=== PATIENT | female | born 1995 | race Caucasian/White ===

== ENCOUNTER 2020-07-13 07:51 | Emergency (ER) | payer BC, SELFPAY ==
[2020-07-13 07:59] VITALS: BP 134/73; PULSE 102; RESP 20; TEMP 37.3; O2SAT 100; BMI 36.6
--- NOTE | 2020-07-13 08:22 | ED.SKABFB ---
HPI - Skin/Abscess/Foreign Bdy General Chief complaint: Skin/Abscess/Foreign Body Stated complaint: swelling lymph nodes, worsening Time Seen by Provider: 07/13/20 08:02 Source: patient Mode of arrival: Family Vehicle Limitations: no limitations History of Present Illness HPI narrative: Patient is an otherwise healthy 25-year-old female was here for evaluation of a lymph node in her right armpit and also 1 in her left groin. She was sent over from the walk-in clinic this morning without seeing the provider there because of a ?need of a workup ?. She was seen recently at the walk-in clinic for the lymph node in her right armpit. She states since that visit it has decreased in size and become somewhat less tender however she has developed a new area in her left groin that is also causing her discomfort. She also states she has tingling down her right arm in her left leg. She is scheduled for an ultrasound of the lymph node in her right armpit tomorrow. She also has a primary care doctor appointment scheduled for next week. She has had some chills but no fevers. She has had cysts in the past in her armpit that have needed to be removed. She was also concerned about breast cancer is she has a couple aunts and a great aunt who have had breast cancer. No cancers in the either her grandmother's or mother or sisters. Related Data Home Medications Medication Instructions Recorded Confirmed No Known Home Medications 07/10/20 07/13/20 Allergies Allergy/AdvReac Type Severity Reaction Status Date / Time No Known Drug Allergies Allergy Verified 07/13/20 08:03 Review of Systems Constitutional Constitutional: Reports chills and Denies fever(s) Cardiovascular Cardiovascular: Denies chest pain and Denies dyspnea Respiratory Respiratory: Denies dyspnea Gastrointestinal Gastrointestinal: Denies abdominal pain Musculoskeletal Musculoskeletal: Reports tingling Integumentary/Breasts Comments: Enlarged lymph nodes Neurologic Neurologic: Reports tingling Hematologic/Lymphatic On Anticoagulants: No Allergic/Immunologic Allergic/Immunologic: Denies urticaria Patient History Medical History Pain in right axilla Social History Smoking Status: Current every day smoker Smoking Status: Current every day smoker tobacco type: cigarettes alcohol intake frequency: 0-2 drinks per day Substance Use Type: marijuana Exam Initial Vital Signs Initial Vital Signs: Vital Signs Temperature 99.1 F 07/13/20 07:59 Pulse Rate 102 H 07/13/20 07:59 Respiratory Rate 20 07/13/20 07:59 Blood Pressure 134/73 07/13/20 07:59 Pulse Oximetry 100 07/13/20 07:59 Const General: cooperative and comfortable Limitations: mental status not altered HENMT Head: normal to inspection and normocephalic Resp Effort & Inspection: normal respiratory effort Cardio Rate: regular rate Skin Lesions: no lesions Rashes: no rashes Extrem Other: Patient has a 2 cm x 1 cm tender well-circumscribed soft lymph node in the right axilla without any overlying skin changes. She also has a 0.5 cm x 0.5 cm freely movable soft tender lymph node in the left inguinal region without any overlying skin changes. Psych Appearance: grossly normal and well kempt Course Vital Signs Vital signs: Vital Signs - 8 hr 07/13/20 07:59 Temperature 99.1 F Pulse Rate 102 H Respiratory Rate 20 Blood Pressure 134/73 Pulse Oximetry 100 MDM - Skin/Abscess/Foreign Bdy MDM Narrative Medical decision making narrative: Her physical exam today is consistent with a right axillary lymph node and also a left inguinal lymph node without any overlying skin changes concerning for cellulitis. I have low suspicion for abscesses given the presentation. I also have low suspicion for cyst given her presentation today as well. She is afebrile. She is slightly tachycardic however she states this is not unusual for her. She is not toxic-appearing. No indication for antibiotics. She does report an improvement of the cyst in her right axilla since the onset to the symptoms. She already has follow-up scheduled. Feel no further workup is needed in the emergency department. She was given return precautions and follow-up instructions. She expressed understanding and agreement. Discharge Plan Departure Patient Disposition: Home Clinical Impression: Lymphadenopathy Instructions: DI for Lymphadenopathy Activity Restrictions/Additional Instructions: Recommend that you keep your appointment tomorrow for your ultrasound. Also recommend that you keep your scheduled doctor's appointment next week. Continue to take Tylenol and/or ibuprofen for any discomfort. Return to the emergency department for new or worsening symptoms Prescriptions: No Action No Known Home Medications RF: 0 Referrals: Vaughn Sethi ARNP [Primary Care Provider] - Stand Alone Forms: Work Release Note
[2020-07-13 08:24] VITALS: BP 123/64; PULSE 89; RESP 16; O2SAT 98
== END 2020-07-13 08:31 | disposition home or self-care (01) ==
LOC: ED 08:31
PROVIDERS: Emergency Provider Emergency Medicine; PCP Registered Nurse
DX: R59.1 Generalized enlarged lymph nodes (principal)
CPT/HCPCS: 99281

== ENCOUNTER → 2020-07-14 09:15 | Outpatient (CLI) | payer BC, SELFPAY ==
--- NOTE | 2020-07-14 09:16 | DI.US.S_ITS ---
ULTRASOUND OF RIGHT BREAST: 07/14/2020 CLINICAL: Tender axillary lump. No prior exams were available for comparison. Color flow and real-time ultrasound of the right breast were performed. Alexander scale images of the real-time examination were reviewed. There is an oval fluid collection with a thickened wall in the right axillary tail. This oval fluid collection is of mixed echogenicity with posterior acoustic enhancement. IMPRESSION: PROBABLY BENIGN The axillary subcutaneous fluid collection most likely is an abscess. Clinicall correlation requested. Incision and drainage or antibiotic therapy are recommended. A diagnostic and therapeutic fluid aspiration could be performed if clinically warranted. Follow-up exam in 1 month recommended after completion of the appropraite therapy. This exam was interpreted at Station ID: [id number]. Electronically Signed By: Darron Collins M.D. jr/:07/18/2020 11:00:19 letter sent: Followup Recommended Ultrasound BI-RADS: 3 Probably benign
== END ==
PROVIDERS: PCP Registered Nurse; Referring Provider Physician Assistant; Visit Provider Physician Assistant
DX: R92.8 Other abnormal and inconclusive findings on diagnostic imaging of breast (principal); N63.31 Unspecified lump in axillary tail of the right breast; M79.621 Pain in right upper arm
CPT/HCPCS: 76882

== ENCOUNTER → 2020-07-28 12:14 | Outpatient (CLI) | payer BC, SELFPAY ==
[2020-07-28 12:51] LABS: Add Manual Diff / Slide Review NO; Basophils Absolute Auto 0 /uL (0-100); Basophils Percent Auto 0.4 % (0-2); Eosinophils Absolute Auto 100 /uL (0-450); Eosinophils Percent Auto 0.6 % (2-4); Hematocrit 41.2 % (36-46); Lymphocytes Absolute Auto 1600 /uL (1100-4500); Lymphocytes Percent Auto 17.4 % (25-40); Mean Corpuscular Hemoglobin 31.3 PG (26-34); Mean Corpuscular Volume 92.1 fL (80-100); Monocytes Absolute Auto 500 /uL (0-900); Monocytes Percent Auto 5.5 % (3-14); Neutrophils Absolute Auto 7000 /uL (1500-7000); Neutrophils Percent Auto 76.1 % (50-75); Platelet Count 231 X10^3/uL (150-400); Red Blood Cell Count 4.48 X10^6/uL (4.0-5.2); Red Cell Distribution Width 12.4 % (11.6-14.8); White Blood Cell Count 9.2 X10^3/uL (4.5-11.0)
[2020-07-28 13:06] LABS: Alanine Aminotransferase 13 IU/L (<35); Albumin 4.4 g/dL (3.5-5.0); Albumin Globulin Ratio 1.5 (1.0-2.8); Alkaline Phosphatase 55 U/L (38-126); Aspartate Aminotransferase 20 IU/L (14-36); BUN Creatinine Ratio 14.5 (6-22); Bilirubin Total 0.6 mg/dL (0.2-1.3); Blood Urea Nitrogen 11 mg/dL (7-17); Calcium 9.4 mg/dL (8.4-10.2); Carbon Dioxide 29 mmol/L (22-32); Chloride 106 mmol/L (98-107); Estimated Glomerular Filt Rate > 60.0 mL/min (>60); Glucose 96 mg/dL (70-100); HEMOLYSIS < 15 (0-50); Potassium 4.4 mmol/L (3.4-5.1); Sodium 141 mmol/L (137-145); Total Protein 7.4 g/dL (6.3-8.2)
[2020-07-28 13:16] LABS: Appearance Urine UA CLEAR; Bilirubin Urine UA NEGATIVE (NEGATIVE); Color Urine UA YELLOW; Glucose Urine UA NEGATIVE (Negative); Ketones Urine UA NEGATIVE (NEGATIVE); Leukocyte Esterase Urine UA NEGATIVE (NEGATIVE); Nitrite Urine UA NEGATIVE (Negative); Occult Blood Urine UA NEGATIVE (Negative); Protein Urine UA NEGATIVE (Negative); Urobilinogen Urine UA 0.2 E.U./dL (0.2)
[2020-08-01 22:51] LABS: ANA Screen, IFA Positive (.)
== END ==
PROVIDERS: PCP Registered Nurse; Referring Provider Registered Nurse; Visit Provider Registered Nurse
DX: R53.83 Other fatigue (principal)
CPT/HCPCS: 36415; 80053; 81003; 85025; 86038

== ENCOUNTER 2020-07-28 17:08 | Emergency (ER) | payer BC, SELFPAY ==
[2020-07-28 17:14] VITALS: BP 168/79; PULSE 96; RESP 14; TEMP 36.8; O2SAT 99; BMI 36.6
--- NOTE | 2020-07-28 17:31 | ED.GENADULT ---
HPI - General Adult General Chief complaint: Skin/Abscess/Foreign Body Stated complaint: alex has staph infection Time Seen by Provider: 07/28/20 17:11 Source: patient Mode of arrival: Ambulatory Limitations: no limitations History of Present Illness HPI narrative: Patient is a 25-year-old female here for evaluation of a cyst in her right axilla and also in her left groin. She has had multiple cysts in the past. She states she has needed IV antibiotics in the past because of them. She has been diagnosed with MRSA in the past. Saw her primary doctor today and was started on doxycycline. She states that the reason she saw primary today was because of the swelling in her left groin region that is causing her discomfort. She also thinks that it is more warm on the left side compared to the right. She was concerned that despite the antibiotics that were prescribed for her today that symptoms may be worsening. Related Data Previous Rx's Medication Instructions Recorded doxycycline hyclate 100 mg tablet 100 mg PO BID 10 Days #20 tab 07/28/20 Allergies Allergy/AdvReac Type Severity Reaction Status Date / Time No Known Drug Allergies Allergy Verified 07/28/20 17:16 Review of Systems Constitutional Constitutional: Denies fever(s) Cardiovascular Cardiovascular: Denies chest pain and Denies dyspnea Respiratory Respiratory: Denies dyspnea Gastrointestinal Gastrointestinal: Denies abdominal pain Genitourinary Comments: Left groin discomfort Integumentary/Breasts Comments: Cyst in her left groin and right axilla Neurologic Neurologic: Denies behavioral changes Psychiatric Psychiatric: Denies behavioral changes Hematologic/Lymphatic On Anticoagulants: No Allergic/Immunologic Allergic/Immunologic: Denies urticaria Patient History Medical History Pain in right axilla Social History Smoking Status: Current some day smoker Smoking Status: Current some day smoker tobacco type: cigarettes alcohol intake frequency: 0-2 drinks per day Substance Use Type: marijuana Exam Initial Vital Signs Initial Vital Signs: Vital Signs Temperature 98.3 F 07/28/20 17:14 Pulse Rate 96 H 07/28/20 17:14 Respiratory Rate 14 07/28/20 17:14 Blood Pressure 168/79 H 07/28/20 17:14 Pulse Oximetry 99 07/28/20 17:14 Const General: cooperative, comfortable and well developed Limitations: mental status not altered HENMT Head: normal to inspection and normocephalic Resp Effort & Inspection: normal respiratory effort Cardio Rate: regular rate GI Inspection: non-distended Palpation: soft and No firm Other: Patient was some fullness in the left groin without defined abscess or cyst felt. Skin Other: No redness or skin changes in the left groin. Extrem General: normal to inspection and capillary refill normal Psych Appearance: grossly normal and well kempt Course Vital Signs Vital signs: Vital Signs - 8 hr 07/28/20 17:14 Temperature 98.3 F Pulse Rate 96 H Respiratory Rate 14 Blood Pressure 168/79 H Pulse Oximetry 99 Medical Decision Making MDM Narrative Medical decision making narrative: Bedside ultrasound of the left groin does not show any abscess or cyst. There is nothing that would need incision and drainage or even needle aspiration. She was here because of the issue in her left groin so her right axilla was not evaluated. She is on doxycycline. There is no need for admission to the hospital. No need for surgical consultation. No need to change any of her current antibiotic regiment. She was given reassurance and was given return precautions. She expressed understanding and agreement. Discharge Plan Departure Patient Disposition: Home Clinical Impression: Left inguinal pain Instructions: DI for Skin Abscess Activity Restrictions/Additional Instructions: I recommend that you continue with the doxycycline that you are prescribed this morning. I recommend that you keep all of your scheduled medical appointments and also recommend that you talk with your primary provider about skin washes that she can take to help reduce/eliminate the MRSA that you carry on your skin. Return to the emergency department for any new or worsening symptoms Prescriptions: No Action doxycycline hyclate 100 mg tablet 100 mg PO BID 10 Days Qty: 20 RF: 0 Referrals: Vaughn Sethi ARNP [Primary Care Provider] -
--- NOTE | 2020-07-28 18:35 | PC.NURSE ---
patient came into the ed concerned that she had MRSA in her bone. Dr horta is discharging her with instructions keep taking her doxycyline
[2020-07-28 18:36] VITALS: BP 165/88; PULSE 85; RESP 14; O2SAT 96
== END 2020-07-28 18:42 | disposition home or self-care (01) ==
PROVIDERS: Emergency Provider Emergency Medicine; PCP Registered Nurse
DX: R53.83 Other fatigue; R10.2 Pelvic and perineal pain
CPT/HCPCS: 36415; 80053; 81003; 85025; 86038; 99281

== ENCOUNTER → 2020-08-07 12:17 | Outpatient (CLI) | payer BC, SELFPAY ==
--- NOTE | 2020-08-07 12:19 | DI.US.S_ITS ---
ULTRASOUND OF RIGHT BREAST AND AXILLA: 08/07/2020 CLINICAL: Right axillary pain x 1 mo. Comparison is made to exam dated: 07/14/2020 [facility]. Color flow ultrasound of the right breast axilla was performed. Alexander scale images of the real-time examination were reviewed. There is a benign 1.1 cm x 0.8 cm x 0.2 cm irregular fluid collection in the right axillary tail with the long axis parallel to the skin. This abnormality has decreased in size, previously 1.5 x 0.3 x 1.5 cm. Color flow imaging demonstrates that there is no vascularity present. IMPRESSION: BENIGN There is no sonographic evidence of malignancy. The 1.1 cm x 0.8 cm x 0.2 cm irregular fluid collection most likely is a sebaceous cyst or resolving infection and is benign. Screening mammography beginning at age 40 is recommended. Findings and recommendations were conveyed to the patient at time of exam. This exam was interpreted at Station ID: [id number]. Electronically Signed By: Cyndi cano/:08/07/2020 14:00:15 letter sent: Normal Exam Ultrasound BI-RADS: 2 Benign
--- NOTE | 2020-08-07 12:19 | DI.US.S_ITS ---
ULTRASOUND OF LEFT BREAST AND AXILLA: 08/07/2020 CLINICAL: Left axillary pain x 1 mo. No prior exams were available for comparison. Ultrasound of the left breast axilla was performed. No significant abnormalities were seen sonographically in the left axilla. Specifically, no finding to explain the patient's pain. IMPRESSION: NEGATIVE There is no sonographic evidence of malignancy or explaination for axillary pain. Screening mammography beginning at age 40 is recommended. Findings and recommendations were conveyed to the patient at time of exam. This exam was interpreted at Station ID: [id number]. Electronically Signed By: Cyndi cano/:08/07/2020 13:52:59 letter sent: Normal Exam Ultrasound BI-RADS: 1 Negative
== END ==
PROVIDERS: PCP Registered Nurse; Referring Provider Registered Nurse; Visit Provider Registered Nurse
DX: N64.4 Mastodynia (principal)
CPT/HCPCS: 76882